=== PATIENT | female | born 1940 | race Caucasian/White ===

== ENCOUNTER → 2024-06-19 | Outpatient (CLI) | payer MEDICARE, BC, SELFPAY ==
[2024-06-19 08:12] LABS: Collection Type, Urine Clean Catch
[2024-06-19 08:44] LABS: Basophils # (Auto) 0.1 Thou/mm3 (0.0-0.2); Basophils % (Auto) 1 % (0-2.5); Eosinophils # (Auto) 0.7 Thou/mm3 (0.0-0.5); Eosinophils % (Auto) 10 % (0-10); Hematocrit 32.7 % (36.0-46.0); Hemoglobin 10.6 g/dL (12.0-16.0); Immature Granulocytes % (Auto) 0 % (0-0); Immature Granulocytes Auto 0.03 Thou/mm3 (0.00-0.00); Lymphocytes # (Auto) 1.3 Thou/mm3 (1.0-4.8); Lymphocytes % (Auto) 19 % (10-50); Mean Corpuscular HGB Conc 32.4 g/dl (31.0-37.0); Mean Corpuscular Hemoglobin 30.1 pg (25.0-35.0); Mean Corpuscular Volume 93 fL (80-100); Monocytes # (Auto) 0.8 Thou/mm3 (0.0-0.8); Monocytes % (Auto) 12 % (0-12); Neutrophils # (Auto) 3.9 Thou/mm3 (1.8-7.7); Neutrophils % (Auto) 57 % (37-80); Nucleated Red Blood Cell % 0 /100 WBC (0); Platelet Count 124 Thou/mm3 (140-440); RDW Standard Deviation 48.1 fL (36.4-46.3); Red Blood Count 3.52 Miln/mm3 (4.00-5.20); White Blood Count 6.8 Thou/mm3 (3.6-11.0)
[2024-06-19 08:54] LABS: Glucose Estimated Average 166 mg/dL (80-131); Hemoglobin A1C 7.4 % Hgb (4.8-6.0)
[2024-06-19 09:01] LABS: Bacteria,Urine Rare; Bilirubin,Urine Negative (Negative); Blood,Urine 2+ (Negative); Color,Urine Yellow (Lt Yel-Yel); Glucose, Urine Negative (Negative); Ketones,Urine Negative (Negative); Leukocyte Esterase,Urine Positive (Negative); Nitrite,Urine Positive (Negative); Protein,Urine Trace (Neg - Trace); RBC,Urine 97 /hpf (0-3); Specific Gravity,Urine 1.019 (1.001-1.035); Squamous Epithelial Cell,Urine 2 /hpf (0-5); Urobilinogen,Urine Negative mg/dL (0.0-1.0); WBC,Urine 790 /hpf (0-5)
[2024-06-19 09:24] LABS: Clarity,Urine Hazy (Clear/Hazy); Creatinine MALB Rnd Ur 84 mg/dL (30-125); Microalbumin Creat Ratio 48 mg/gCrea (<30); Microalbumin, Random Urine 40 mg/L (0-300)
[2024-06-19 09:43] LABS: Alanine Aminotransferase 18 U/L (10-49); Albumin, Serum 4.4 gm/dL (3.4-4.8); Albumin/Globulin Ratio 2.3 (1.2-2.2); Alkaline Phosphatase 78 U/L (46-116); Anion Gap 9 (7-16); Aspartate Amino Transferase 24 U/L (0-34); BUN/Creatinine Ratio 23 Ratio (12-20); Bilirubin,Total 0.4 mg/dL (0.3-1.2); Blood Urea Nitrogen 30 mg/dL (9-23); Calcium 9.5 mg/dL (8.3-10.6); Calcium (Corrected) 9.5 mg/dL (8.5-10.1); Carbon Dioxide 27.4 mMol/L (20.0-31.0); Cardiac Risk Estimate 4.4 RATIO (3.7-5.6); Chloride 101 mMol/L (98-107); Cholesterol 221 mg/dL (132-200); Creatinine (Component) 1.3 mg/dL (0.6-1.3); Globulin 1.9 gm/dL (2.3-3.5); Glucose 151 mg/dL (74-106); HDL Cholesterol 50 mg/dL (40-60); LDL Cholesterol,Calculated 151 mg/dL (0-130); Osmolality,Calculated 283 (275-295); Potassium 4.7 mMol/L (3.4-5.1); Sodium 137 mMol/L (136-145); Thyroid Stimulating Hormone 3.28 uIU/mL (0.55-4.78); Total Protein 6.3 gm/dL (5.7-8.2); Triglycerides 99 mg/dL (30-150); eGFR 41 See Note
== END | disposition home or self-care (01) ==
LOC: COPL 07:25
PROVIDERS: PCP Family Medicine; Referring Provider Family Medicine; Visit Provider Family Medicine
DX: Z00.00 Encounter for general adult medical examination without abnormal findings (principal); E11.59 Type 2 diabetes mellitus with other circulatory complications; E78.2 Mixed hyperlipidemia; I10 Essential (primary) hypertension; I25.10 Atherosclerotic heart disease of native coronary artery without angina pectoris
CPT/HCPCS: 36415; 80053; 80061; 81001; 82043; 82570; 83036; 84443; 85025

== ENCOUNTER → 2024-06-28 | Outpatient (CLI) | payer MEDICARE, SELFPAY | END | disposition home or self-care (01) | LOC: SLDO 15:37 | PROVIDERS: PCP Family Medicine; Referring Provider Family Medicine; Visit Provider Family Medicine | DX: N30.00 Acute cystitis without hematuria (principal) | CPT/HCPCS: 87086 ==

== ENCOUNTER → 2024-08-16 | Outpatient (CLI) | payer MEDICARE, BC, SELFPAY ==
--- NOTE | 2024-08-16 15:04 | XR_ITS ---
Examination:Right hip AP, lateral, AP pelvis 3 views Technique: Hip AP lateral, AP pelvis, 3 views Exam date and time:August 16, 2024 1511 hrs. Indications: Right hip pain beginning one month ago. Findings: Severe osteopenia Moderate right hip osteoarthritis No right hip fracture or dislocation Moderate left hip osteoarthritis Bones of the pelvis intact Impression: Moderate bilateral hip osteoarthritis.
== END | disposition home or self-care (01) ==
LOC: CDIM 14:32
PROVIDERS: PCP Family Medicine; Referring Provider Family Medicine; Visit Provider Family Medicine
DX: M16.0 Bilateral primary osteoarthritis of hip (principal)
CPT/HCPCS: 73502

== ENCOUNTER 2024-08-25 18:15 | Emergency (ER) | payer MEDICARE, BC, SELFPAY ==
[2024-08-25 18:18] VITALS: BMI 29.6
[2024-08-25 18:33] VITALS: BP 180/69; PULSE 70; RESP 20; TEMP 36.6; O2SAT 95
--- NOTE | 2024-08-25 18:59 | PD.EDADULT ---
ED General RME/HPI General Chief complaint: Epistaxis/Nasal Foreign Body Stated complaint: Epistaxis since 1300 on Elequis and Plavix Time Seen by Provider: 08/25/24 18:34 Arrival date/time: 08/25/24 18:15 RME / HPI RME / HPI narrative: Patient is 84 years old female with past medical history of hyperlipidemia, hypertension, type 2 diabetes, CAD s/p 2 stents placement on Plavix, A-fib on Eliquis, aortic valve replacement presented to the ED due to epistaxis. She reports she develops epistaxis once every week or two and believes it is due to her high blood pressure and blood thinners. She is taking losartan 25 mg daily for hypertension and was instructed to take 25 mg more if blood pressure is high. She denies any trauma or picking her nose. She denies any headache, shortness of breath, chest pain, fever or chills. Related Data Home Medications ?Medication ?Instructions ?Recorded ?Confirmed aspirin 81 mg tablet 81 mg PO QPM 12/23/21 07/20/23 atorvastatin 20 mg tablet 20 mg PO QPM 12/23/21 07/20/23 cyclobenzaprine 5 mg tablet 5 mg PO BID 12/23/21 07/20/23 dextromethorphan-guaifenesin 30 1 tab PO Q12H 12/23/21 07/20/23 mg-600 mg tablet extended hr (Mucinex DM) diphenhydramine HCl 50 mg capsule 50 mg PO TID PRN Insomnia 12/23/21 12/23/21 (Unisom SleepGels) losartan 100 mg tablet 100 mg PO QDAY 12/23/21 07/20/23 melatonin 1 mg tablet 0.25 mg PO HS PRN Insomnia 12/23/21 07/20/23 metformin 500 mg tablet 500 tab PO BID 12/23/21 07/20/23 Held on 07/20/23. Instructions: Resume on 07/22/23. Resume this medication at your usual time on this date omeprazole 20 mg capsule,delayed 20 cap PO QDAY 12/23/21 12/23/21 release albuterol 90 mcg/actuation aerosol 90 mcg inhalation 5 TIMES DAILY 07/20/23 07/20/23 inhaler alendronate 70 mg tablet 70 mg PO QWEEK 07/20/23 07/20/23 benzonatate 100 mg capsule 100 mg PO BID PRN Cough 07/20/23 07/20/23 calcium 250 mg tablet 250 mg PO BID 07/20/23 07/20/23 famotidine 20 mg tablet 20 mg BID 07/20/23 07/20/23 furosemide 40 mg tablet (Lasix) 40 mg PO QDAY 07/20/23 07/20/23 lactulose 10 gram/15 mL oral 20 g PO BID 07/20/23 07/20/23 solution montelukast 10 mg tablet 10 mg PO QPM 07/20/23 07/20/23 Allergies Allergy/AdvReac Type Severity Reaction Status Date / Time amoxicillin (From Augmentin) Allergy Severe face and Verified 12/23/21 11:11 thorat swelling clavulanic acid (From Allergy Severe face and Verified 12/23/21 11:11 Augmentin) thorat swelling fluconazole (From Diflucan) Allergy Severe face and Verified 12/23/21 11:11 thorat swelling sulfamethoxazole (From Allergy Intermediate oral thrush Verified 12/23/21 11:11 Bactrim) trimethoprim (From Bactrim) Allergy Intermediate oral thrush Verified 12/23/21 11:11 Review of Systems Review of Systems Systems Reviewed: All systems reviewed, normal except as documented ED Exam Narrative Physical exam: Gen: Well-developed and well-nourished elderly female. HEENT: NCAT, PERRLA, EOMI, MMM, anicteric conjunctivae. CVS: normal S1 and S2. RRR. Systolic murmur best heard over aortic area. Resp: CTA B/L. No rhonchi, rales, crackles or wheezing. Abd: soft, non-tender, non-distended. BS+ in all 4 quadrants. MSK: Good ROM in BUE & BLE. No rash. 2+ edema BLE. Neuro: CN II-XII grossly intact. Strength 5/5 in BUE & BLE. Alert and oriented x3. Psych: appropriate mood and affect. Course Course Course Narrative: 2030 nasal packing placed Quality Measures none Orders Category Date Time Status Losartan [Cozaar] Med 08/25/24 18:59 Discontinued 25 mg PO X1 ONE Oxymetazoline [place] 0.05% [Afrin Nasal Stella] Med 08/25/24 19:06 Discontinued See Dose Instructions NASAL X1 ONE Silver Nitrate Applicators Med 08/25/24 19:00 Discontinued 2 appl TOP X1 ONE cloNIDine HCL [Catapres] Med 08/25/24 21:00 Discontinued 0.2 mg PO X1 ONE cloNIDine HCL [Catapres] Med 08/25/24 21:13 Discontinued 0.2 mg PO X1 ONE Vital Signs Vital signs: Vital Signs Temperature 98 F 08/25/24 18:33 Pulse Rate 70 08/25/24 18:33 Respiratory Rate 20 08/25/24 18:33 Blood Pressure 180/69 H 08/25/24 18:33 Pulse Oximetry (%) 95 08/25/24 18:33 Oxygen Delivery Method Room Air 08/25/24 18:33 Procedures -ED Epistaxis Control Time Out Performed: Yes Nostril: bilateral Nose Prepped With: oxymetazoline Direct Inspection: yes Clots Removed by: blowing nose Cautery Used: silver nitrate Device Inserted: nasal tampon Device Size: 7 Patient Tolerated Procedure: Well Complications: other (none) [facility] Patient data External records reviewed:: [facility] [place] previous records Clinical information provided by:: patient and family Social determinants that could affect healthcare access:: none Patient has the following chronic illnesses:: hyperlipidemia, hypertension, type 2 diabetes, CAD s/p 2 stents placement on Plavix, A-fib on Eliquis, aortic valve replacement How is presenting disease/condition affected by chronic disease/condition?: caused by Evaluation data The following diagnostics were reviewed and interpreted by me:: other (specify) (none) Lab and/or radiology exams considered but not ordered:: CT face, CBC Interpretation Summary: none. Medications Medications considered but not ordered:: TXA, labetalol, hydralazine Medication administrations:: Medication Administration History Discontinued Medications Clonidine (Clonidine Hcl 0.1 Mg Tablet) 0.2 mg PO X1 ONE Stop: 08/25/24 21:01 Last Admin: 08/25/24 21:14 Dose: Not Given Documented By: Non-Admin Reason: Other, see note Comments: contaminated medication with nose bleed. Clonidine (Clonidine Hcl 0.1 Mg Tablet) 0.2 mg PO X1 ONE Stop: 08/25/24 21:14 Last Admin: 08/25/24 21:21 Dose: 0.2 mg Documented By: Losartan Potassium (Losartan Potassium 25 Mg Tablet) 25 mg PO X1 ONE Stop: 08/25/24 19:00 Last Admin: 08/25/24 19:28 Dose: 25 mg Documented By: Oxymetazoline HCl (Oxymetazoline [place] 0.05% 15 Ml Btl) 0 spray NASAL X1 ONE Stop: 08/25/24 19:07 Last Admin: 08/25/24 19:27 Dose: 2 spray Documented By: Silver Nitrate (Silver Nitrate 1 Appl Ea) 2 appl TOP X1 ONE Stop: 08/25/24 19:01 Last Admin: 08/25/24 19:27 Dose: 2 appl Documented By: Losartan 25 mg, oxymetazoline, silver nitrate, clonidine 0.2 mg. Consultations Consultation(s) initiated? (list below): No Diagnosis Differential Diagnosis ED Complaint MDM: Epistaxis, trauma Most likely diagnosis given after review of the tests above:: Epistaxis Admission Indicated Admission indicated?: not indicated Explain why admission is indicated or not indicated:: Patient is developing frequent epistaxis due to HTN and taking clopidogrel and apixaban. Bleeding is minor with minimal blood loss. Admission Request Was there a request for admission?: No Disposition Plan Disposition Plan: Discharge Discharge Attestation Discharge Attestation: The patient and all family members were given an opportunity to ask questions and understood the discharge instructions. Discharge instructions specifically effects, indications for sooner follow up or return to the emergency department, and the expected course of current diagnosis. Patient condition: Stable Medical Decision Making Differential Diagnosis Differential Diagnosis: Epistaxis, trauma Discharge Plan Plan Patient Disposition: HOME (Self Care) Patient condition on transfer: Stable Prescriptions/Referrals Prescriptions/Med Rec: No Action metformin 500 mg tablet 500 tab PO BID Patient Comments: TAKE 1 TABLET BY MOUTH TWICE A DAY atorvastatin 20 mg tablet 20 mg PO QPM Patient Comments: TAKE 1 TABLET BY MOUTH ONCE NIGHTLY FOR HIGH CHOLESTEROL, NOT RESPONDING TO PRAVASTATIN diphenhydramine HCl [Unisom SleepGels] 50 mg Capsule 50 mg PO TID PRN (Reason: Insomnia) omeprazole 20 mg capsule,delayed release(DR/EC) 20 cap PO QDAY Patient Comments: TAKE 1 CAPSULE BY MOUTH TWICE A DAY aspirin 81 mg Tablet 81 mg PO QPM Mucinex DM 30-600 mg Tablet Extended Release 12 Hr 1 tab PO Q12H losartan 100 mg tablet 100 mg PO QDAY Patient Comments: TAKE 1 TABLET BY MOUTH EVERY DAY cyclobenzaprine 5 mg tablet 5 mg PO BID Patient Comments: TAKE 1 TABLET (5 MG) BY ORAL ROUTE 2 TIMES PER DAY FOR PERSISTENT MUSCLE PAIN/SPASM melatonin 1 mg Tablet 0.25 mg PO HS PRN (Reason: Insomnia) furosemide [Lasix] 40 mg Tablet 40 mg PO QDAY alendronate 70 mg Tablet 70 mg PO QWEEK famotidine 20 mg Tablet 20 mg BID benzonatate 100 mg Capsule 100 mg PO BID PRN (Reason: Cough) montelukast 10 mg Tablet 10 mg PO QPM albuterol 90 mcg/actuation Aerosol 90 mcg INHALATION 5 TIMES DAILY lactulose 10 gram/15 mL Solution 20 g PO BID calcium 250 mg Tablet 250 mg PO BID Problem List Clinical Impression: Epistaxis Patient/Caregiver Discharge Instructions Education Materials: ED Epistaxis (Adult) Additional Instructions: Recommendations after ER visit: -keep nasal packing for 48 hours and then remove it. -discuss with your cycle liaison blood pressure medications. -follow up with PCP next week. -return to the ED if symptoms recur or worsen. If tomorrow you are still bleeding, come back to the ED. Print Language: Kinyarwanda Stand Alone Forms: Maryellen Award Info., Patient Portal Info Letter
[2024-08-25] MEDS: OXYMETAZOLINE NAS SPRY 0.05% 15 ML BTL NASAL (19:27)
[2024-08-25] MEDS: SILVER NITRATE 1 APPL EA 2 APPL TOP (19:27)
[2024-08-25 19:28] VITALS: BP 180/69; PULSE 70
[2024-08-25] MEDS: LOSARTAN POTASSIUM 25 MG TABLET PO (19:28)
[2024-08-25 21:01] VITALS: BP 187/75; BP 189/96; PULSE 70; RESP 18; O2SAT 98
[2024-08-25 21:21] VITALS: BP 187/75; PULSE 70
[2024-08-25] MEDS: cloNIDine HCL 0.1 MG TABLET 0.2 MG PO (21:21)
[2024-08-25 22:06] VITALS: BP 174/64; PULSE 71; O2SAT 99
== END 2024-08-25 22:29 | disposition home or self-care (01) ==
LOC: SERX 20:08
PROVIDERS: Emergency Provider Emergency Medicine
DX: R04.0 Epistaxis (principal); I25.10 Atherosclerotic heart disease of native coronary artery without angina pectoris; E11.9 Type 2 diabetes mellitus without complications; I10 Essential (primary) hypertension; E78.5 Hyperlipidemia, unspecified; I48.91 Unspecified atrial fibrillation; Z95.5 Presence of coronary angioplasty implant and graft; Z95.2 Presence of prosthetic heart valve; Z79.899 Other long term (current) drug therapy; Z79.02 Long term (current) use of antithrombotics/antiplatelets; Z79.01 Long term (current) use of anticoagulants
CPT/HCPCS: 30901; 99283; A9270

== ENCOUNTER → 2024-10-19 | Outpatient (CLI) | payer MEDICARE, BC, SELFPAY ==
[2024-10-19 09:26] LABS: Collection Type, Urine Clean Catch
[2024-10-19 10:03] LABS: Basophils # (Auto) 0.1 Thou/mm3 (0.0-0.2); Basophils % (Auto) 1 % (0-2.5); Eosinophils # (Auto) 0.6 Thou/mm3 (0.0-0.5); Eosinophils % (Auto) 8 % (0-10); Hematocrit 30.4 % (36.0-46.0); Hemoglobin 9.9 g/dL (12.0-16.0); Immature Granulocytes % (Auto) 1 % (0-0); Immature Granulocytes Auto 0.06 Thou/mm3 (0.00-0.00); Lymphocytes # (Auto) 1.1 Thou/mm3 (1.0-4.8); Lymphocytes % (Auto) 15 % (10-50); Mean Corpuscular HGB Conc 32.6 g/dl (31.0-37.0); Mean Corpuscular Hemoglobin 31.3 pg (25.0-35.0); Mean Corpuscular Volume 96 fL (80-100); Monocytes # (Auto) 0.8 Thou/mm3 (0.0-0.8); Monocytes % (Auto) 10 % (0-12); Neutrophils # (Auto) 5.1 Thou/mm3 (1.8-7.7); Neutrophils % (Auto) 66 % (37-80); Nucleated Red Blood Cell % 0 /100 WBC (0); Platelet Count 139 Thou/mm3 (140-440); RDW Standard Deviation 49.1 fL (36.4-46.3); Red Blood Count 3.16 Miln/mm3 (4.00-5.20); White Blood Count 7.7 Thou/mm3 (3.6-11.0)
[2024-10-19 10:08] LABS: Glucose Estimated Average 151 mg/dL (80-131); Hemoglobin A1C 6.9 % Hgb (4.8-6.0)
[2024-10-19 10:19] LABS: Bacteria,Urine 1+; Bilirubin,Urine Negative (Negative); Blood,Urine 1+ (Negative); Color,Urine Drk-Yellow (Lt Yel-Yel); Glucose, Urine Negative (Negative); Ketones,Urine Negative (Negative); Leukocyte Esterase,Urine Positive (Negative); Nitrite,Urine Positive (Negative); PH,Urine 7.5 (5.0-7.0); Protein,Urine 1+ (Neg - Trace); RBC,Urine 24 /hpf (0-3); Specific Gravity,Urine 1.018 (1.001-1.035); Squamous Epithelial Cell,Urine 1 /hpf (0-5); Urobilinogen,Urine Negative mg/dL (0.0-1.0); WBC,Urine 1099 /hpf (0-5)
[2024-10-19 10:22] LABS: Clarity,Urine Cloudy (Clear/Hazy)
[2024-10-19 10:28] LABS: Alanine Aminotransferase 16 U/L (10-49); Albumin, Serum 4.3 gm/dL (3.4-4.8); Albumin/Globulin Ratio 2.2 (1.2-2.2); Alkaline Phosphatase 60 U/L (46-116); Anion Gap 9 (7-16); Aspartate Amino Transferase 29 U/L (0-34); BUN/Creatinine Ratio 16 Ratio (12-20); Bilirubin,Total 0.5 mg/dL (0.3-1.2); Blood Urea Nitrogen 18 mg/dL (9-23); Calcium 9.3 mg/dL (8.3-10.6); Calcium (Corrected) 9.3 mg/dL (8.5-10.1); Cardiac Risk Estimate 2.9 RATIO (3.7-5.6); Chloride 103 mMol/L (98-107); Cholesterol 132 mg/dL (132-200); Creatinine (Component) 1.1 mg/dL (0.6-1.3); Glucose 165 mg/dL (74-106); HDL Cholesterol 45 mg/dL (40-60); LDL Cholesterol,Calculated 71 mg/dL (0-130); Osmolality,Calculated 285 (275-295); Potassium 4.3 mMol/L (3.4-5.1); Sodium 140 mMol/L (136-145); Thyroid Stimulating Hormone 2.03 uIU/mL (0.55-4.78); Total Protein 6.3 gm/dL (5.7-8.2); Triglycerides 81 mg/dL (30-150); eGFR 50 See Note
[2024-10-19 10:54] LABS: Creatinine MALB Rnd Ur 78 mg/dL (30-125); Microalbumin Creat Ratio 183 mg/gCrea (<30); Microalbumin, Random Urine 143 mg/L (0-300)
== END | disposition home or self-care (01) ==
PROVIDERS: PCP Family Medicine; Referring Provider Family Medicine; Visit Provider Internal Medicine Cardiovascular Disease
DX: Z00.00 Encounter for general adult medical examination without abnormal findings (principal)
CPT/HCPCS: 36415; 80053; 80061; 81001; 82043; 82570; 83036; 84443; 85025

== ENCOUNTER → 2024-11-23 | Outpatient (CLI) | payer MEDICARE, BC, SELFPAY ==
--- NOTE | 2024-11-23 13:40 | XR_ITS ---
Examination: Bone densitometry Date and time of exam:November 23, 2024 1408 hours INDICATIONS: Menopause age 50, diabetic, vitamin D and calcium 3-4 years Technique: Lumbar spine and hip total bone mineralization values of an calculated. Peak reference and age match control results have been displayed. Findings: Lumbar spine total bone mineralization is1.163 gm/cm2. This is 1.1 standard deviations above peak reference. This is 3.9 standard deviations above age-matched controls. Hip total bone mineralization is 0.900 gm/cm2 This is 0.3 standard deviations below peak reference. This is 1.9 standard deviations above age-matched controls Impression: There is normal mineralization based on lumbar spine measurements. There is osteopenia based on hip measurements Lumbar mineralization is increased 5.6% compared with November 18, 2021 Hip mineralization is increase 0.7% compared with November 18, 2021
== END | disposition home or self-care (01) ==
LOC: CDIM 13:39
PROVIDERS: PCP Family Medicine; Referring Provider Family Medicine; Visit Provider Family Medicine
DX: M85.88 Other specified disorders of bone density and structure, other site (principal)
CPT/HCPCS: 77080

== ENCOUNTER → 2024-12-10 | Outpatient (CLI) | payer MEDICARE, BC, SELFPAY ==
--- NOTE | 2024-12-10 12:32 | XR_ITS ---
Examination: Fingers, left hand first digit 3 views Technique: AP, oblique, lateral views left hand first digit 3 views. Exam date and time: December 10, 2024 1312 hours INDICATIONS: Left thumb pain beginning 2 months ago. FINDINGS: Severe osteopenia Advanced osteoarthritis first carpometacarpal joint No fracture. No dislocation No cortical bone destruction IMPRESSION: Advanced osteoarthritis first carpometacarpal joint As clinically warranted, this joint is amenable to steroid injection under fluoroscopic guidance in the radiology department
[2024-12-10 14:33] LABS: Collection Type, Urine Clean Catch
[2024-12-10 15:29] LABS: Bilirubin,Urine Negative (Negative); Blood,Urine Negative (Negative); Clarity,Urine Clear (Clear/Hazy); Color,Urine Lt-Yellow (Lt Yel-Yel); Glucose, Urine 2+ (Negative); Ketones,Urine Negative (Negative); Leukocyte Esterase,Urine Negative (Negative); Nitrite,Urine Negative (Negative); PH,Urine 7.5 (5.0-7.0); Protein,Urine Trace (Neg - Trace); RBC,Urine 6 /hpf (0-3); Specific Gravity,Urine 1.025 (1.001-1.035); Squamous Epithelial Cell,Urine 3 /hpf (0-5); Urobilinogen,Urine Negative mg/dL (0.0-1.0); WBC,Urine 3 /hpf (0-5)
== END | disposition home or self-care (01) ==
LOC: CDIM 14:23 → SLDO 14:37
PROVIDERS: PCP Family Medicine; Referring Provider Family Medicine; Visit Provider Radiology Diagnostic Radiology
DX: M18.12 Unilateral primary osteoarthritis of first carpometacarpal joint, left hand (principal); N30.00 Acute cystitis without hematuria
CPT/HCPCS: 73140; 81001; 87086

== ENCOUNTER → 2025-01-28 | Outpatient (CLI) | payer MEDICARE, BC, SELFPAY ==
[2025-01-28 15:18] LABS: Collection Type, Urine Clean Catch
[2025-01-28 16:37] LABS: Amorphous Crystals,Urine Present (Absent); Bacteria,Urine Rare; Bilirubin,Urine Negative (Negative); Blood,Urine 3+ (Negative); Clarity,Urine Turbid (Clear/Hazy); Color,Urine Yellow (Lt Yel-Yel); Glucose, Urine Negative (Negative); Hyaline Casts,Urine 8 /hpf (0-1); Ketones,Urine Negative (Negative); Leukocyte Esterase,Urine Positive (Negative); Nitrite,Urine Negative (Negative); PH,Urine 6.5 (5.0-7.0); Protein,Urine Trace (Neg - Trace); RBC,Urine 343 /hpf (0-3); Specific Gravity,Urine 1.019 (1.001-1.035); Squamous Epithelial Cell,Urine 1 /hpf (0-5); Urobilinogen,Urine Negative mg/dL (0.0-1.0); WBC,Urine 13 /hpf (0-5)
== END | disposition home or self-care (01) ==
LOC: SLDO 14:40
PROVIDERS: PCP Family Medicine; Referring Provider Family Medicine; Visit Provider Family Medicine
DX: N30.00 Acute cystitis without hematuria (principal)
CPT/HCPCS: 81001; 87086

== ENCOUNTER → 2025-02-08 | Outpatient (CLI) | payer MEDICARE, BC, SELFPAY ==
[2025-02-08 10:31] LABS: Basophils # (Auto) 0.1 Thou/mm3 (0.0-0.2); Basophils % (Auto) 1 % (0-2.5); Eosinophils # (Auto) 0.5 Thou/mm3 (0.0-0.5); Eosinophils % (Auto) 7 % (0-10); Hematocrit 33.3 % (36.0-46.0); Hemoglobin 10.8 g/dL (12.0-16.0); Immature Granulocytes Auto 0.02 Thou/mm3 (0.00-0.00); Lymphocytes # (Auto) 1.2 Thou/mm3 (1.0-4.8); Lymphocytes % (Auto) 17 % (10-50); Mean Corpuscular HGB Conc 32.4 g/dl (31.0-37.0); Mean Corpuscular Hemoglobin 30.4 pg (25.0-35.0); Mean Corpuscular Volume 94 fL (80-100); Monocytes # (Auto) 0.7 Thou/mm3 (0.0-0.8); Monocytes % (Auto) 10 % (0-12); Neutrophils # (Auto) 4.5 Thou/mm3 (1.8-7.7); Neutrophils % (Auto) 65 % (37-80); Nucleated Red Blood Cell # 0.00 Thou/mm3 (0.00-0.00); Nucleated Red Blood Cell % 0 /100 WBC (0); Platelet Count 139 Thou/mm3 (140-440); RDW Standard Deviation 45.9 fL (36.4-46.3); Red Blood Count 3.55 Miln/mm3 (4.00-5.20); White Blood Count 7.0 Thou/mm3 (3.6-11.0)
[2025-02-08 10:53] LABS: B-Type Natriuretic Peptide 221 pg/mL (0-100)
[2025-02-08 10:54] LABS: Glucose Estimated Average 200 mg/dL (80-131); Hemoglobin A1C 8.6 % Hgb (4.8-6.0)
[2025-02-08 11:15] LABS: Alanine Aminotransferase 14 U/L (10-49); Albumin, Serum 4.4 gm/dL (3.4-4.8); Alkaline Phosphatase 60 U/L (46-116); Anion Gap 9 (7-16); Aspartate Amino Transferase 20 U/L (0-34); BUN/Creatinine Ratio 16 Ratio (12-20); Bilirubin,Direct 0.1 mg/dL (0.0-0.3); Bilirubin,Total 0.4 mg/dL (0.3-1.2); Blood Urea Nitrogen 19 mg/dL (9-23); Calcium 10.0 mg/dL (8.3-10.6); Carbon Dioxide 26.6 mMol/L (20.0-31.0); Chloride 103 mMol/L (98-107); Creatinine (Component) 1.2 mg/dL (0.6-1.3); Free T4 (Free Thyroxine) 1.18 ng/dL (0.89-1.76); Glucose 164 mg/dL (74-106); Osmolality,Calculated 283 (275-295); Potassium 4.3 mMol/L (3.4-5.1); Sodium 139 mMol/L (136-145); Thyroid Stimulating Hormone 3.00 uIU/mL (0.55-4.78); Total Protein 6.5 gm/dL (5.7-8.2); eGFR 45 See Note
[2025-02-08 11:46] LABS: Cardiac Risk Estimate 2.6 RATIO (3.7-5.6); Cholesterol 132 mg/dL (132-200); HDL Cholesterol 51 mg/dL (40-60); LDL Cholesterol,Calculated 59 mg/dL (0-130); Triglycerides 111 mg/dL (30-150)
== END | disposition home or self-care (01) ==
PROVIDERS: PCP Family Medicine; Referring Provider Internal Medicine Cardiovascular Disease; Visit Provider Internal Medicine Cardiovascular Disease
DX: E78.2 Mixed hyperlipidemia (principal); I11.0 Hypertensive heart disease with heart failure; I50.9 Heart failure, unspecified; E13.9 Other specified diabetes mellitus without complications
CPT/HCPCS: 36415; 80048; 80061; 80076; 83036; 83880; 84439; 84443; 85025

== ENCOUNTER → 2025-03-08 | Outpatient (CLI) | payer MEDICARE, BC, SELFPAY ==
[2025-03-08 09:48] LABS: Basophils # (Auto) 0.1 Thou/mm3 (0.0-0.2); Basophils % (Auto) 1 % (0-2.5); Eosinophils # (Auto) 0.4 Thou/mm3 (0.0-0.5); Eosinophils % (Auto) 7 % (0-10); Hematocrit 32.9 % (36.0-46.0); Hemoglobin 10.5 g/dL (12.0-16.0); Immature Granulocytes Auto 0.05 Thou/mm3 (0.00-0.00); Lymphocytes # (Auto) 1.3 Thou/mm3 (1.0-4.8); Lymphocytes % (Auto) 21 % (10-50); Mean Corpuscular HGB Conc 31.9 g/dl (31.0-37.0); Mean Corpuscular Hemoglobin 30.5 pg (25.0-35.0); Mean Corpuscular Volume 96 fL (80-100); Monocytes # (Auto) 0.6 Thou/mm3 (0.0-0.8); Monocytes % (Auto) 10 % (0-12); Neutrophils # (Auto) 3.8 Thou/mm3 (1.8-7.7); Neutrophils % (Auto) 61 % (37-80); Nucleated Red Blood Cell # 0.00 Thou/mm3 (0.00-0.00); Nucleated Red Blood Cell % 0 /100 WBC (0); Platelet Count 159 Thou/mm3 (140-440); RDW Standard Deviation 47.4 fL (36.4-46.3); Red Blood Count 3.44 Miln/mm3 (4.00-5.20); White Blood Count 6.1 Thou/mm3 (3.6-11.0)
[2025-03-08 10:09] LABS: Anion Gap 7 (7-16); B-Type Natriuretic Peptide 174 pg/mL (0-100); BUN/Creatinine Ratio 17 Ratio (12-20); Blood Urea Nitrogen 20 mg/dL (9-23); Calcium 9.5 mg/dL (8.3-10.6); Carbon Dioxide 31.8 mMol/L (20.0-31.0); Chloride 100 mMol/L (98-107); Creatinine (Component) 1.2 mg/dL (0.6-1.3); Glucose 171 mg/dL (74-106); Osmolality,Calculated 284 (275-295); Potassium 4.1 mMol/L (3.4-5.1); Sodium 139 mMol/L (136-145); eGFR 45 See Note
== END | disposition home or self-care (01) ==
LOC: COPL 09:06
PROVIDERS: PCP Family Medicine; Referring Provider Internal Medicine Cardiovascular Disease; Visit Provider Internal Medicine Cardiovascular Disease
DX: I11.0 Hypertensive heart disease with heart failure (principal); I50.9 Heart failure, unspecified; E78.2 Mixed hyperlipidemia
CPT/HCPCS: 36415; 80048; 83880; 85025

== ENCOUNTER → 2025-03-13 | Outpatient (CLI) | payer MEDICARE, BC, SELFPAY ==
--- NOTE | 2025-03-13 10:30 | XR_ITS ---
Examination: Screening digital mammography, bilateral Computer aided detection 3-D breast Tomosynthesis, bilateral Date and time of exam: March 13, 2025 1024 hours, compared to mammograms dating to August 25, 2018 Indication: Screening Technique: Nonmagnified MLO, CC views of the breasts to been obtained, reconstructed from 3-D Tomosynthesis images. R2 computer aided detection program utilized for evaluation of suspicious masses and/or abnormal calcifications. 3-D Tomosynthesis images obtained. Findings: Scattered areas of fibroid rather density. Stable nodule upper outer right breast Benign calcifications. No interval suspicious masses Impression: BI-RADS category II: Benign Findings. Recommend 1 year follow-up mammogram.
== END | disposition home or self-care (01) ==
PROVIDERS: PCP Family Medicine; Referring Provider Family Medicine; Visit Provider Family Medicine
DX: Z12.31 Encounter for screening mammogram for malignant neoplasm of breast (principal); R92.323 Mammographic fibroglandular density, bilateral breasts; R92.1 Mammographic calcification found on diagnostic imaging of breast
CPT/HCPCS: 77063; 77067

== ENCOUNTER → 2025-03-26 | Outpatient (CLI) | payer MEDICARE, BC, SELFPAY ==
[2025-03-26 17:11] LABS: Collection Type, Urine Clean Catch
[2025-03-26 17:36] LABS: Bilirubin,Urine Negative (Negative); Blood,Urine 1+ (Negative); Clarity,Urine Clear (Clear/Hazy); Color,Urine Lt-Yellow (Lt Yel-Yel); Glucose, Urine Negative (Negative); Hyaline Casts,Urine < 1 /hpf (0-1); Ketones,Urine Negative (Negative); Leukocyte Esterase,Urine Negative (Negative); Nitrite,Urine Negative (Negative); PH,Urine 5.5 (5.0-7.0); Protein,Urine Negative (Neg - Trace); RBC,Urine 10 /hpf (0-3); Specific Gravity,Urine 1.016 (1.001-1.035); Squamous Epithelial Cell,Urine < 1 /hpf (0-5); Urobilinogen,Urine Negative mg/dL (0.0-1.0); WBC,Urine 7 /hpf (0-5)
== END | disposition home or self-care (01) ==
LOC: SLDO 17:06
PROVIDERS: PCP Family Medicine; Referring Provider Family Medicine; Visit Provider Family Medicine
DX: N30.00 Acute cystitis without hematuria (principal)
CPT/HCPCS: 81001; 87086